=== PATIENT | female | born 1955 | race Two or more races ===

== ENCOUNTER 2023-04-26 13:24 | Emergency (ER) | payer OTHER ==
[~2023-04-26] VITALS: Ht 165.1 cm; Wt 74.8 kg
[2023-04-26 17:59] LABS: CALCIUM 9.7 mg/dL (8.5-10.1); CREATININE SERUM 0.76 mg/dL (0.55-1.02); GFR 76.14; POTASSIUM 4.51 mEq/L (3.5-5.1)
[2023-04-26] MEDS ORDERED: KETOROLAC TROMETHAMINE 60 MG VIAL IM STA (18:32)
== END 2023-04-26 22:01 | disposition home or self-care (01) ==
LOC: ER 13:24
PROVIDERS: General Practice
DX: M54.89 Other dorsalgia (principal); M48.56XA Collapsed vertebra, not elsewhere classified, lumbar region, initial encounter for fracture; E11.9 Type 2 diabetes mellitus without complications; I10 Essential (primary) hypertension; E03.9 Hypothyroidism, unspecified

== ENCOUNTER 2024-09-19 19:12 | Emergency (ER) | payer OTHER ==
[~2024-09-19] VITALS: Ht 167.6 cm; Wt 79.4 kg
[2024-09-19] MEDS ORDERED: IBUPROFEN600 MG PO (22:22)
== END 2024-09-19 23:15 | disposition home or self-care (01) ==
LOC: ER 19:12
DX: S00.93XA Contusion of unspecified part of head, initial encounter (principal); S70.12XA Contusion of left thigh, initial encounter; W07.XXXA Fall from chair, initial encounter; Y93.89 Activity, other specified; Y92.89 Other specified places as the place of occurrence of the external cause; Y99.9 Unspecified external cause status

== ENCOUNTER 2024-10-11 18:25 | Emergency (ER) | payer OTHER ==
[~2024-10-11] VITALS: Ht 167.6 cm; Wt 77.6 kg
[~2024-10-11 18:25] MED LIST: IBUPROFEN600 MG PO
[2024-10-11] MEDS ORDERED: CLINDAMYCIN PHOSPHATE 150 MG/ML (600mg) IV STA (21:10)
[2024-10-11] MEDS ORDERED: CLINDAMYCIN PHOSPHATE 150 MG/ML (300mg) ONE (21:18)
[2024-10-11 21:25] LABS: BASO % 0.5 % (0.1-1.2); EOS # 0.20 (0.04-0.54); EOS % 2.6 % (0.7-7.0); LYMPH # 3.64 (1.18-3.74); LYMPH % 46.4 % (19.3-53.1); MEAN PLATELET VOLUME 9.10 fl (9.4-12.4); MONO # 0.57 (0.24-0.82); MONO % 7.3 % (4.7-12.5); NEUT # 3.38 (1.56-6.13); NEUT % 43.1 % (34.0-71.1); RED CELL DISTRIBUTION WIDTH 12.7 % (11.6-14.4)
[2024-10-11 21:33] LABS: ERYTHROCYTE SEDIMENTATION RATE 10 mm/hr (0-30)
[2024-10-11 21:46] LABS: INR 1.0
[2024-10-11 21:50] LABS: BUN CREA RATIO 20.0 (7.0-25.0); CREATININE SERUM 0.96 mg/dL (0.55-1.02); GFR 57.8; GLUCOSE FASTING 110.0 mg/dL (65-100); OSMOLALITY SERUM 288.0 MOSM/KG (275-295)
== END 2024-10-11 22:58 | disposition home or self-care (01) ==
LOC: ER 18:25
DX: L03.116 Cellulitis of left lower limb (principal)